=== PATIENT | female | born 1965 | race Caucasian/White ===

== ENCOUNTER → 2021-10-09 | Outpatient (CLI) | payer OTHER ==
[~2021-10-09] MED LIST: POTASSIUM20 PO; SYNTHROID PO; TRIAMTERENE-HC1 EAC1; ZYRTEC10 M2
== END ==
LOC: M.ULTRA 10:00
PROVIDERS: ATTEND Nurse Practitioner Family
DX: I82.431 Acute embolism and thrombosis of right popliteal vein (principal); R60.9 Edema, unspecified; Z86.718 Personal history of other venous thrombosis and embolism